=== PATIENT | male | born 1955 | race Two or more races ===

== ENCOUNTER 2022-01-05 07:20 | Emergency (ER) | payer OTHER ==
[~2022-01-05] VITALS: Ht 175.3 cm; Wt 51.7 kg
[2022-01-05] MEDS ORDERED: NIFE60TA3 (07:53)
[2022-01-05] MEDS ORDERED: ZESTRIL10 M1 (07:53)
[2022-01-05] MEDS ORDERED: DIALYVITE TABL1 EACH (07:54)
[2022-01-05] MEDS ORDERED: FOSAMAX70 MG (07:54)
[2022-01-05] MEDS ORDERED: OMEPRAZOLE MAGN20 MG (07:54)
[2022-01-05] MEDS ORDERED: CARDURA1 MG (07:54)
[2022-01-05] MEDS ORDERED: HORIZANT300 MG (07:54)
[2022-01-05] MEDS ORDERED: HUMALOG100 UNIT/2 (07:55)
[2022-01-05] MEDS ORDERED: TAMS0.4C (07:55)
[2022-01-05] MEDS ORDERED: ZOLOFT100 MG (07:55)
[2022-01-05] MEDS ORDERED: LANTUS SOL100 UNIT/1 (07:55)
[2022-01-05] MEDS ORDERED: CREON DR 6,0001 EACH (07:55)
[2022-01-05] MEDS ORDERED: IROSPAN 24/6 T1 EACH (07:56)
[2022-01-05] MEDS ORDERED: DAILY VALUE1 EACH (07:56)
[2022-01-05] MEDS ORDERED: CALCIUM 600+D1 EAC1 (07:56)
[2022-01-05] MEDS ORDERED: VITAMIN B-125000 MC1 (07:57)
[2022-01-05] MEDS ORDERED: ORTHO DF 3,7751 EACH (07:57)
== END 2022-01-05 13:19 | disposition home or self-care (01) ==
LOC: ER 07:20
DX: R10.9 Unspecified abdominal pain (principal); Z85.07 Personal history of malignant neoplasm of pancreas; Z88.0 Allergy status to penicillin